=== PATIENT | female | born 2005 | race Caucasian/White ===

== ENCOUNTER 2023-09-29 16:14 | Emergency (ER) | payer MEDICAID ==
[~2023-09-29] VITALS: Ht 175.3 cm; Wt 114.3 kg
[2023-09-29 16:45] VITALS: BP 136/77; PULSE 101; RESP 18; O2SAT 98
[2023-09-29 17:20] LABS: Basophils # (auto) 0 10 ^3/uL (0-0.2); Basophils % (auto) 0.4 % (0.0-2.0); Eosinophils # (auto) 0 10 ^3/uL (0-0.8); Hematocrit 47.2 % (36.0-46.0); Hemoglobin 15.1 g/dL (12.2-16.2); Lymphocytes # (auto) 1.1 10 ^3/uL (0.4-5.4); Lymphocytes % (auto) 9.1 % (10.0-50.0); Mean Corpuscular Hemoglobin 30.1 pg (28.0-32.0); Mean Corpuscular Hgb Conc. 32.1 g/dL (32.0-36.0); Mean Corpuscular Volume 93.7 fL (80.0-100.0); Monocytes # (auto) 0.8 10 ^3/uL (0-1.3); Monocytes % (auto) 6.5 % (0.0-12.0); Neutrophils # (auto) 9.9 10 ^3/uL (1.6-8.6); Red Blood Cells 5.04 10^6/uL (4.0-5.20); Red Cell Distribution Width 16.9 % (11.8-14.3); White Blood Cell 11.8 10^3/uL (4.4-10.8)
[2023-09-29 17:28] LABS: Urine Bacteria FEW /hpf (None Seen); Urine Blood Negative /uL (Negative); Urine Clarity HAZY (Clear); Urine Color Yellow (Yellow); Urine Mucus FEW (None Seen); Urine Protein, UAD 3+ (Negative); Urine Specific Gravity 1.037 (1.001-1.035); Urine WBC 6 /hpf (0 - 5)
[2023-09-29 17:29] LABS: Chloride 105 mmol/L (98-107); Potassium 3.8 mmol/L (3.5-5.1); Sodium 141 mmol/L (136-145)
[2023-09-29 17:30] LABS: Anion Gap 11 (5-15); Carbon Dioxide 25 mmol/L (20-30)
[2023-09-29 17:35] LABS: Glucose 102 mg/dL (74-106)
[2023-09-29 17:36] LABS: BUN/Creatinine Ratio 7.4 (10.0-20.0); Blood Alcohol < 3.0 mg/dL (<10); Blood Urea Nitrogen 7 mg/dL (9-23)
[2023-09-29 18:45] LABS: Albumin 5.3 g/dL (3.2-4.8); Bilirubin, Direct 0.3 mg/dL (<0.3); Bilirubin, Total 0.9 mg/dL (0.2-1.0); Total Protein 8.1 g/dL (5.7-8.2)
[2023-09-29] MEDS ORDERED: DICY10CA PO (19:19)
[2023-09-29] MEDS ORDERED: ZOFR4T PO (19:19)
[2023-09-29] MEDS: DICYCLOMINE HCL (10MG/ML) 2 ML AMPULE IM ONE (22:49)
[2023-09-29] MEDS: ONDANSETRON ODT 4 MG TAB PO ONE (22:49)
== END 2023-09-29 22:49 | disposition home or self-care (01) ==
LOC: ER 16:14
DX: F10.90 Alcohol use, unspecified, uncomplicated (principal); R10.13 Epigastric pain; R11.2 Nausea with vomiting, unspecified; Z79.899 Other long term (current) drug therapy; Y90.0 Blood alcohol level of less than 20 mg/100 ml
CPT/HCPCS: 36415; 76705; 80048; 80076; 80320; 81001; 81025; 83690; 85025